=== PATIENT | female | born 1970 | race Hispanic/Latino ===

== ENCOUNTER → 2017-08-27 | Outpatient (CLI) | payer SELFPAY | END | disposition home or self-care (01) | LOC: OIH 10:54 | PROVIDERS: ATTEND Physical Medicine & Rehabilitation | DX: S82.101A Unspecified fracture of upper end of right tibia, initial encounter for closed fracture (principal); M17.11 Unilateral primary osteoarthritis, right knee; X58.XXXA Exposure to other specified factors, initial encounter; Y93.89 Activity, other specified; Y92.89 Other specified places as the place of occurrence of the external cause; Y99.8 Other external cause status | CPT/HCPCS: 73562 ==

== ENCOUNTER 2020-03-09 06:22 | Emergency (ER) | payer OTHER, SELFPAY | END 2020-03-09 07:48 | disposition home or self-care (01) | LOC: EDH 06:22 | DX: F43.0 Acute stress reaction (principal); R00.2 Palpitations; M54.2 Cervicalgia; Z88.8 Allergy status to other drugs, medicaments and biological substances | CPT/HCPCS: 93005 ==

== ENCOUNTER → 2023-12-24 | Outpatient (CLI) | payer OTHER | END | disposition home or self-care (01) | LOC: RAH 14:12 | PROVIDERS: ATTEND Internal Medicine Cardiovascular Disease | DX: Z13.6 Encounter for screening for cardiovascular disorders (principal) | CPT/HCPCS: 75571 ==

== ENCOUNTER → 2024-02-03 | Outpatient (CLI) | payer BC, OTHER | END | disposition home or self-care (01) | LOC: SHCH 08:00 | PROVIDERS: ATTEND Internal Medicine Cardiovascular Disease | DX: I08.0 Rheumatic disorders of both mitral and aortic valves (principal); E11.9 Type 2 diabetes mellitus without complications; R07.9 Chest pain, unspecified | CPT/HCPCS: 93306 ==

== ENCOUNTER → 2024-03-20 | Outpatient (CLI) | payer BC | END | disposition home or self-care (01) | LOC: RAH 11:02 | PROVIDERS: ATTEND Internal Medicine | DX: R10.10 Upper abdominal pain, unspecified (principal) | CPT/HCPCS: 78264; A9541 ==